=== PATIENT | female | born 1965 | race Caucasian/White ===

== ENCOUNTER → 2017-01-25 | Outpatient (CLI) | payer BC ==
--- NOTE | 2017-01-26 15:08 | MAMMOGRAPHY REPORT ---
ULTRASOUND OF BOTH BREASTS: 01/25/2017 CLINICAL HISTORY: 51-year-old woman presents for follow-up bilateral whole breast ultrasound for mul tiple bilateral solid and cystic appearing masses that have a benign sonographic appearance. Mammog raphically, there are multiple bilateral masses. COMPARISON: Comparison is made to exams dated: 07/27/2016 ultrasound, 07/14/2016 mammogram, 011 mammogram, 07/29/2011 ultrasound, 07/27/2011 mammogram - [facility], and 07/19. FINDINGS: Real-time high-resolution sonographic evaluation was performed throughout each breast and axillary regions. The breast parenchymal echotexture is heterogeneousdense. There is no suspicio us right or left axillary lymphadenopathy. In the 12:00 left breast, 2 cm from the nipple, there is an oval circumscribed anechoic benign simpl e cyst measuring 2.6 x 1.9 x 3.0 mm. A larger anechoic simple cyst is seen in the 12:00 periareolar left breast measuring 5.1 x 3.3 x 5.5 mm. A rounded isoechoic solid versus cystic mass is again se en in the 1:00 left breast, 4 cm from the nipple, measuring 2.5 x 2.1 x 3.2 mm. An isoechoic to sli ghtly hypoechoic solid-appearing mass is identified in the 1:00 left breast, 1 cm from the nipple, m easuring 4.7 x 2.8 x 4.5 mm. In the far lateral 2:00 left breast a morphologically normal lymph nod e is seen. In the 3:00 left breast, 5 cm from the nipple, there is a lobulated isoechoic solid-appe aring mass measuring 5.7 x 2.4 x 7.0 mm, parallel in orientation. There is a mixed echogenicity kaylyn id mass in the 4:00 left breast, 1 cm from the nipple, measuring approximately 12.1 x 5.4 x 10.6 mm. The borders are indistinct sonographically, but this likely represents a stable mammographic mass in the 4:00 left breast that has not significantly changed in size dating back to at least 2010. In the 6:00 left breast, 1 cm from the nipple, there is an oval anechoic benign simple cyst measuring 3.5 x 2.0 x 3.2 mm. A hypoechoic solid versus cystic mass is identified in the 9:00 left breast, 1 cm from the nipple, measuring 2.9 x 2.0 x 4.3 mm. In the 9:00 left breast, 1 cm from the nipple, an other oval parallel circumscribed anechoic cyst measures 4.0 mm. In the 10:00 left breast, 2 cm fro m the nipple, an anechoic cyst measures 2.9 mm and there are 2 adjacent cysts in the 10:[address], 1 cm from the nipple, measuring 3.3 and 2.3 mm. The indeterminate masses in the 6:00 to 7:00 a nd 8:00 left breast are no longer seen, confirming benignity. The remainder of the solid and cystic benign-appearing masses at the left breast appear similar in size compared to the prior ultrasound and are most likely benign. Another six-month follow-up complete left breast ultrasound is recommen ded. In the 12:00 right breast, 3 cm from the nipple, there is a lobulated isoechoic solid mass measuring 4.7 x 3.1 x 4.2 mm. A collapsing cyst versus focal duct ectasia in the 4:00 right breast, 1 cm fro m the nipple measures 4.6 mm. In the adjacent 4:00 right breast, 1 cm from the nipple, there is a l obulated isoechoic solid-appearing mass measuring 2.3 x 3.0 x 2.3 mm. In the 6:00 right breast, 2 c m from the nipple, there is a possible intraductal mass measuring 3.1 x 2.5 x 3.4 mm. In the 8:00 r ight breast, 3 cm from the nipple, there is an oval parallel circumscribed anechoic cyst measuring 4 .7 x 2.1 x 5.1 mm. An isoechoic rounded solid-appearing mass in the 9:00 right breast, 2 cm from th e nipple measures 2.6 x 2.1 x 2.4 mm. In the 10:00 right breast, 4 cm from the nipple, another isoe choic to hypoechoic solid-appearing rounded mass measures 2.9 x 2.9 x 4.1 mm. There are 2 adjacent isoechoic solid-appearing masses in the 9:00 periareolar right breast measuring 3.7 x 2.9 x 5.0 mm, and 2.3 mm. The possible intraductal mass in the 6:00 right breast was not identified on the prior ultrasound and given the appearance of a duct leading to and from this mass, this is indeterminate, warranting further evaluation with tissue sampling. A few other benign-appearing circumscribed sayra d masses are seen in the 9:00 right breast which were not previously documented but overall they pedro ear similar to multiple other masses scattered bilaterally. Another six-month follow-up whole breas t ultrasound is recommended in the right breast, pending benign pathology results in the 6:00 axis. IMPRESSION: ACR BI-RADS CATEGORY 4: SUSPICIOUS - FOLLOW-UP RECOMMENDED 1. Ultrasound guided core needle biopsy is recommended for an indeterminate 3 mm solid microlobulat ed, probably intraductal mass in the 6:00 right breast, 2 cm from the nipple. 2. Pending benign pathology results from the right breast biopsy, would recommend bilateral whole br east ultrasound again in 6 months, to ensure longer stability of the multiple bilateral circumscribe d benign-appearing solid and cystic masses. These results and recommendations were discussed with the patient at the time of the exam. She tent atively scheduled the right breast biopsy prior to leaving our department. Dolly Zimmerman M.D. ay/:01/26/2017 11:27:13 Rn Lab: Veronica AYALA)(David), [facility] letter sent: Abnormal 4/5 BI-RADS Code: ACR BI-RADS Category 4: Suspicious
== END | disposition home or self-care (01) ==
LOC: C.MAMM 08:04
PROVIDERS: ATTEND Family Medicine
DX: Z09 Encounter for follow-up examination after completed treatment for conditions other than malignant neoplasm (principal); N63 Unspecified lump in breast; N60.01 Solitary cyst of right breast; N60.02 Solitary cyst of left breast

== ENCOUNTER → 2017-02-03 | Outpatient (CLI) | payer BC ==
--- NOTE | 2017-02-03 11:54 | Discharge Instructions ---
Discharge Instructions Procedure Procedure Date: February 03, 2017. Reason for visit: Right Mass. Discharge Discharge Date: February 03, 2017. Discharge Diagnosis: status post breast biopsy Instructions Activity Recommendations: Additional Limitations (see below) Return to School/Work: no limitations Recommended Home Diet: No Limitations Provider Instructions: ACTIVITY RECOMMENDATIONS: * No lifting, pushing, pulling or exercising the affected side for three days. RETURN TO SCHOOL/WORK: * You may return to work/school after the procedure, but do not perform any strenuous activities for 24 to 48 hours. MEDICATIONS: * Tylenol (two 325 mg) every four to six hours if needed for mild pain (if not allergic to Tylenol). DIET: * Resume previous diet. SPECIAL CARE INSTRUCTIONS: * Keep biopsy site dry for 24 hours. May shower after 24 hours, but do not soak (bathe) incision. * May remove Tegaderm (plastic patch) tomorrow AFTER showering. * Leave the steri-strips on for one week. Allow the steri-strips to fall off by themselves. If not off after one week, you may remove them. You may place a Bandaid crosswise over the strips, if desired. * Apply ice 10 minutes on and 10 minutes off as needed. * Wear a bra at bedtime to sleep more comfortably for 2-3 days. * Your referring physician should have the results after approximately 5 to 7 business days. * Call for unusual bleeding, fever, drainage, etc or if you have any questions call during normal business hours or after hours call Dr Jara, . FOLLOW UP VISIT: Follow-up with Referring Physician as scheduled. Soraya Nails Recommendations: Call your doctor if: * Temperature above 101 degrees * Pain not relieved by pain medicine ordered * There is increased drainage or redness from any incision * You have any unanswered questions or concerns. Your Doctors Instructions noted above were prepared by provider Letty Jara. Patient Signature Section: Patient Instructions Signature Page Yulissa Nguyen Patient (or Guardian) Signature/Date: I have read and understand the instructions given to me by my caregivers. Caregiver/RN/Doctor Signature/Date: The above-named patient and/or guardian has received patient instructions on this date. + Original Patient Signature Page (only) stays with chart. Please make copy for patient.
--- NOTE | 2017-02-03 15:40 | MAMMOGRAPHY REPORT ---
ULTRASOUND GUIDED BIOPSY RIGHT BREAST: 02/03/2017 CLINICAL HISTORY: Right 6:00 breast mass. PATIENT CONSENT: The procedure, risks and benefits were discussed with the patient and informed writ ten consent was obtained. A timeout was performed immediately prior to the procedure. PROCEDURE DESCRIPTION: With ultrasound guidance, aseptic technique, and lidocaine as the local anest hetic (1% lidocaine to anesthetize the skin and 1% lidocaine with epinephrine to anesthetize the hannah per tissues), the mass of concern in the right 6:00 breast was sampled 3 times with a 14-gauge Achie ve biopsy needle. The finding was no longer well seen after the last sample, so a clip was placed i n the general region of the biopsy site. Immediately thereafter, Direct pressure was applied to t he site immediately post procedure and hemostasis was achieved. Postprocedure unilateral mammograms were performed to confirm placement of the clip in the expected location of the breast mass. The p atient tolerated the procedure without complication. She was given wound care instructions. The spe cimens were sent to pathology for analysis. COMPARISON: Comparison is made to exams dated: 01/25/2017 ultrasound, 07/27/2016 ultrasound, 016 mammogram, 07/29/2011 mammogram, 07/29/2011 ultrasound, and 07/27/2011 mammogram - [facility]. IMPRESSION: ULTRASOUND GUIDED BIOPSY Ultrasound-guided core needle biopsy of the right 6:00 breast mass, with clip placement. The patien brandyn will receive pathology results from her referring provider. Letty Jara M.D. ah/:02/03/2017 11:57:34 Hosiery Repairer: Amanda AYALA)(David), [facility]
--- NOTE | 2017-02-03 15:42 | MAMMOGRAPHY REPORT ---
UNILATERAL RIGHT DIGITAL DIAGNOSTIC MAMMOGRAM: 02/03/2017 CLINICAL HISTORY: Status post right breast biopsy. TECHNIQUE: Postprocedural right CC and ML views were obtained. COMPARISON: Comparison is made to exams dated: 01/25/2017 ultrasound, 07/27/2016 ultrasound, 016 mammogram, and 07/29/2011 mammogram - [facility]. BREAST COMPOSITION: There are scattered areas of fibroglandular density in the right breast. FINDINGS: A new biopsy marker clip is seen in the expected location of the biopsied right 6:[address] mass. No significant postbiopsy hematoma is seen. IMPRESSION: POST PROCEDURE IMAGING FOR MARKER PLACEMENT New biopsy marker clip status post right breast ultrasound guided biopsy. Pathology results are pen ding. Approximately 10% of breast cancers are not detected with mammography. A negative mammographic repor t should not delay biopsy if a clinically suggestive mass is present. Letty Jara M.D. ah/:02/03/2017 11:58:47 Apparel Manager: Amanda LEONARDO(R)(M), [facility] BI-RADS Code: Post Procedure Imaging For Marker Placement
== END | disposition home or self-care (01) ==
LOC: C.MAMM 11:07
PROVIDERS: ATTEND Family Medicine
DX: N63 Unspecified lump in breast (principal)

== ENCOUNTER → 2017-10-04 | Outpatient (CLI) | payer BC ==
--- NOTE | 2017-10-05 12:46 | MAMMOGRAPHY REPORT ---
BILATERAL DIGITAL DIAGNOSTIC MAMMOGRAM TOMOSYNTHESIS WITH CAD AND BILATERAL ULTRASOUND: 10/04/2017 CLINICAL HISTORY: 52-year-old woman presents at time of annual bilateral screening mammography. She is 6 months status post benign right breast ultrasound guided core biopsy and also presents for follo w-up ultrasound in both breasts for multiple masses. TECHNIQUE: Bilateral breast tomosynthesis in addition to standard 2D mammography was performed. Curre nt study was also evaluated with a Computer Aided Detection (CAD) system. COMPARISON: Comparison is made to exams dated: 02/03/2017 mammogram, 02/03/2017 ultrasound biopsy, 2016 ultrasound, 07/27/2016 ultrasound, 07/14/2016 mammogram, and 07/29/2011 mammogram - [facility]. BREAST COMPOSITION: The tissue of both breasts is heterogeneously dense, which may obscure small mas ses. FINDINGS: There are multiple bilateral circumscribed masses scattered in the breasts, which is a typi mat benign mammographic pattern. No obvious spiculated or irregular mass or focal area of architec tural distortion is seen bilaterally. There are scattered and loosely grouped stable microcalcificat ions bilaterally. A stable ribbon-shaped biopsy marker clip in the anterior right breast. Real-time high-resolution sonographic evaluation was performed through each breast including the retr oareolar aspect of the breast and both axillae. Morphologically normal lymph nodes are identified in the right and left axilla, without evidence of suspicious lymphadenopathy. The breast parenchymal e chotexture is heterogeneousdense. In the 12:00 periareolar left breast, a circumscribed lobulated h ypoechoic solid versus cystic mass is again identified measuring 4.2 x 2.7 x 5.1 mm. A small isoecho ic to hypoechoic rounded circumscribed mass is identified in the 1:00 left breast, 37 m the nipple, m easuring 2.5 x 2.5 x 2.7 mm. An isoechoic parallel circumscribed solid appearing mass in the 1:00 le ft breast, 1 cm from the nipple measures 4.6 x 3.0 x 3.6 mm. No masses are identified in the 2:00 le ft breast in the area of previously observed nearly anechoic cystic appearing mass seen on prior ultr asounds. A lobulated parallel isoechoic solid appearing mass is again seen in the 3:00 left breast, 4 cm from the nipple, measuring 5.8 x 2.6 x 6.9 mm. A mixed echogenicity circumscribed mass is again seen in the 4:00 periareolar left breast measuring 10.4 x 5.6 x 10.7 mm. A grouping of anechoic and hypoechoic areas and echogenic tissue are again seen in the 6:00 left breast, 1 cm from the nipple, measuring 5.8 x 3.4 x 8.1 mm. A round circumscribed hypoechoic solid versus cystic mass in the 7:00 left breast, 1 cm from the nipple measures 2.8 x 2.1 x 2.6 mm. A cyst cluster is seen in the 10:00 l eft breast, 1 cm from the nipple, measuring 4.1 x 4.1 mm. All of the above described masses have not significantly changed comparing back to a prior whole breast ultrasound dated 07/27/2016 and are mos t likely benign. Another 12 month follow-up left breast ultrasound is recommended to ensure at least 2 years of stability to confirm benignity. In the right 12:00 breast, 4 cm from the nipple, there is a circumscribed hypoechoic solid appearing mass measuring 4.8 x 3.2 x 3.5 mm. A lobulated isoechoic and anechoic cystic appearing mass versus c yst cluster is identified in the 6:00 right breast, 2 cm from the nipple, measuring 8.7 x 2.4 x 8.6 m m. An isoechoic solid appearing mass in the 6:00 right breast, 1 cm from the nipple measures 3.4 x 2 .7 x 2.3 mm. A predominantly anechoic cyst is seen in the 8:00 right breast, 3 cm from the nipple, m easuring 5 mm. An isoechoic solid appearing mass in the 9:00 periareolar right breast measures 3.1 x 2.9 x 3.6 mm. Another isoechoic solid appearing mass in the 10:00 right breast, 4 cm from the nippl e measures 3.9 x 3.0 x 3.7 mm. All of the masses identified in the right breast on ultrasound do not appear significantly changed in size comparing to the prior ultrasound dated 07/27/2016 and the mass es are most likely benign. Another 12 month follow-up right breast ultrasound is recommended to ensu re at least 2 years of stability to confirm benignity. IMPRESSION: ACR-BI-RADS CATEGORY 3: PROBABLY BENIGN, ULTRASOUND ACR-BI-RADS CATEGORY 3: PROBABLY ERNA IGN 1. Stable mammographic appearance of the breast including multiple bilateral circumscribed masses an d a stable biopsy marker clip in the right breast. 12 month follow-up bilateral diagnostic tomosynth esis mammograms are recommended. 2. Bilateral complete ultrasound (30 minutes) is recommended to ensure stability of multiple bilater al hypoechoic and isoechoic solid and solid versus cystic masses identified in each breast on whole b reast ultrasound to ensure at least 2 years of stability to confirm benignity of the multiple above d escribed masses. Overall the findings most likely represent a combination of benign fibrocystic zepeda ges and fibroadenomas. These results and recommendations were discussed with the patient at the time of the exam. She tenta tively scheduled a follow-up appointment prior to leaving our department. Approximately 10% of breast cancers are not detected with mammography. A negative mammographic report should not delay biopsy if a clinically suggestive mass is present. Dolly Zimmerman M.D. ay/:10/04/2017 15:14:38 Occupational Therapy Technician: Kimberly LEONARDO(Alia)(David), [facility] letter sent: Follow Up Recommended 3 BI-RADS Code: ACR-BI-RADS Category 3: Probably Benign Ultrasound BI-RADS: ACR-BI-RADS Category 3: Pr obably Benign
== END | disposition home or self-care (01) ==
LOC: C.MAMM 08:03
PROVIDERS: ATTEND Family Medicine
DX: N63.10 Unspecified lump in the right breast, unspecified quadrant (principal); N63.20 Unspecified lump in the left breast, unspecified quadrant